=== PATIENT | male | born 1955 | race American Indian/Alaskan Native ===

== ENCOUNTER 2018-06-18 08:47 | Outpatient (CLI) | payer OTHER ==
--- NOTE | 2018-06-21 08:43 | XRay Report ---
BILATERAL ELBOWS, 2 VIEWS History: Numbness, spondylosis and myelopathy. Findings: No comparison. Bone mineralization is borderline. There is no evidence for fracture or suspicious bony lesion. No joint effusions. Minimal osteoarthritic changes are identified bilaterally. Small olecranon spur on the right side and a large olecranon spur on the left side are identified. Impression: Bilateral olecranon spurs, left greater than right. Minimal osteoarthritic changes.
--- NOTE | 2018-06-21 08:45 | XRay Report ---
BILATERAL HIPS WITH PELVIS, 3 VIEWS: History: Numbness, spondylosis and myelopathy. Findings: The bone mineralization is borderline. No evidence for fracture, diastasis, osteonecrosis or significant joint pathology. Minimal joint space narrowing of the hips could be considered. There is mild sclerosis of the left SI joint. Impression: Mild degenerative changes.
--- NOTE | 2018-06-21 08:46 | XRay Report ---
AP AND LATERAL CERVICAL SPINE: History: Numbness, spondylosis and myelopathy. Borderline bone mineralization. There is straightening of the normal cervical lordosis. Posterior fusion with decompressive laminectomy has been performed from C3-5. Alignment appears anatomic. Moderate disc space narrowing and endplate spurring is identified at all levels. No evidence for fracture or bony lesion. IMPRESSION: Stable appearance of the posterior fusion from C3-5. Cervical spondylosis.
--- NOTE | 2018-06-21 08:49 | XRay Report ---
BILATERAL SHOULDERS, 3 VIEWS History: Numbness, spondylosis and myelopathy. Findings: Borderline bone mineralization. Within the right shoulder, minimal to mild osteoarthritic changes are identified. No evidence for fracture, dislocation or bony lesion. Within the left shoulder, moderate to severe osteoarthritic changes are identified. There is prominent inferior spurring from the a.c. joint and acromion with near obliteration of the acromiohumeral space. Rotator cuff abnormality is suspected. No evidence for fracture, dislocation or bony lesion. Impression: Degenerative changes as described. The left shoulder is more affected and likely has a rotator cuff abnormality. Consider further evaluation of the left shoulder with MRI.
== END 2018-06-18 08:48 | disposition home or self-care (01) ==
LOC: XRAY 08:47
PROVIDERS: ATTEND Internal Medicine
DX: M19.012 Primary osteoarthritis, left shoulder (principal); M19.011 Primary osteoarthritis, right shoulder; M43.22 Fusion of spine, cervical region; M47.892 Other spondylosis, cervical region; M16.0 Bilateral primary osteoarthritis of hip; M19.022 Primary osteoarthritis, left elbow; M19.021 Primary osteoarthritis, right elbow
CPT/HCPCS: 72040; 73521